=== PATIENT | female | born 1965 | race American Indian/Alaskan Native ===

== ENCOUNTER 2018-04-30 12:51 | Emergency (ER) | payer SELFPAY ==
[2018-04-30 13:06] VITALS: BP 171/105
--- NOTE | 2018-04-30 13:07 | Emergency Department Report ---
Blank Doc - Documentation Documentation: c/o left pain for months swelling since Friday. No trauma. Vaginal d/c for o jeremie a month. This initial assessment diagnostic orders/clinical plan/treatment (s) is/Are subject change based on patient's health status, clinical progression and re- assessment by fellow clinical providers in the ED. Further treatment and work-up at subsequent clinical providers discretion. Patient/guardians urged not to elope from their condition may be serious if not clinically assessed and managed. Initial order include:
[2018-04-30 13:55] LABS: Bilirubin,Urine NEG (Negative); Blood,Urine NEG (Negative); Color,Urine Yellow (Yellow); Mucus,Urine FEW /HPF; Protein,Urine <15 mg/dL mg/dL (Negative)
--- NOTE | 2018-04-30 16:47 | Emergency Department Report ---
ED General Adult HPI - General Chief complaint: Urogenital-Female Stated complaint: LFT LEG SWELLING/PAIN/DISCHARGE Time Seen by Provider: 04/30/18 13:03 Source: patient Mode of arrival: Ambulatory Limitations: No Limitations - History of Present Illness Initial comments: Patient is a 52-year-old female who presented with 2 problems. Problem #1 is that her left lower extremity i has developed swelling that is progressively worsening. Patient states that she thought that it may be related to her blood pressure she's been taking her blood pressure medicines. Patient's states it does vary in size throughout the day however it's not resolving like it was several months ago. Patient denies any injury. Patient also is complaining of vaginal discharge for the last 2 months. Patient states she is sexually active with one partner has not worried about STDs. She denies any dysuria or vaginal bleeding or urinary frequency. Patient states she tried taking amoxicillin think she may have had a urinary tract infection this did not resolve the issue. Severity scale (0 -10): 9 - Related Data Previous Rx's Medication Instructions Recorded Last Taken Type Fluconazole [Diflucan] 150 mg PO ONCE #1 tablet 04/30/18 Unknown Rx Furosemide [Lasix] 20 mg PO DAILY #5 tablet 04/30/18 Unknown Rx metroNIDAZOLE [Flagyl] 500 mg PO Q12HR #14 tab 04/30/18 Unknown Rx Allergies Allergy/AdvReac Type Severity Reaction Status Date / Time No Known Allergies Allergy Verified 04/30/18 12:57 ED Review of Systems ROS: Stated complaint: LFT LEG SWELLING/PAIN/DISCHARGE Other details as noted in HPI Comment: All other systems reviewed and negative ED Past Medical Hx - Past Medical History Hx Hypertension: Yes - Surgical History Additional Surgical History: HYSTO/ SLEEVE / TUBAL LIGATATION - Social History Smoking Status: Current Every Day Smoker Substance Use Type: Alcohol - Medications Home Medications: Home Medications Medication Instructions Recorded Confirmed Last Taken Type Fluconazole [Diflucan] 150 mg PO ONCE #1 tablet 04/30/18 Unknown Rx Furosemide [Lasix] 20 mg PO DAILY #5 tablet 04/30/18 Unknown Rx metroNIDAZOLE [Flagyl] 500 mg PO Q12HR #14 tab 04/30/18 Unknown Rx ED Physical Exam - General Limitations: No Limitations General appearance: alert, in no apparent distress - Head Head exam: Present: atraumatic, normocephalic - Eye Eye exam: Present: normal appearance - ENT ENT exam: Present: mucous membranes moist - Neck Neck exam: Present: normal inspection - Respiratory Respiratory exam: Present: normal lung sounds bilaterally. Absent: respiratory distress, wheezes, rales, rhonchi, stridor - Cardiovascular Cardiovascular Exam: Present: regular rate, normal rhythm. Absent: systolic murmur, diastolic murmur, rubs, gallop - GI/Abdominal GI/Abdominal exam: Present: soft, normal bowel sounds. Absent: distended, tenderness, guarding, rebound - External exam: Present: normal external exam Speculum exam: Present: vaginal discharge (white thick). Absent: vaginal bleeding, foreign body, tissue Bi-manual exam: Absent: cervical motion tendernes - Extremities Exam Extremities exam: Present: other (patient's left lower extremity does have 1+ edema up to the mid calf) - Back Exam Back exam: Present: normal inspection - Neurological Exam Neurological exam: Present: alert, oriented X3 - Psychiatric Psychiatric exam: Present: normal affect, normal mood - Skin Skin exam: Present: warm, dry, intact, normal color. Absent: rash ED Course Vital Signs 04/30/18 13:03 Temperature 98 F Pulse Rate 82 Respiratory 18 Rate Blood Pressure 171/105 O2 Sat by Pulse 99 Oximetry ED Medical Decision Making - Lab Data Labs 04/30/18 Unknown Urine Color Yellow Urine Turbidity Cloudy Urine pH 7.0 Ur Specific [place] 1.020 Urine Protein <15 mg/dl Urine Glucose (UA) Neg Urine Ketones Neg Urine Blood Neg Urine Nitrite Neg Urine Bilirubin Neg Urine Urobilinogen 4.0 Ur Leukocyte Esterase Neg Urine WBC (Auto) 4.0 Urine RBC (Auto) 4.0 Urine Mucus Few Wet prep shows bacterial vaginosis - Radiology Data No evidence of DVT is seen Critical care attestation.: If time is entered above; I have spent that time in minutes in the direct care of this critically ill patient, excluding procedure time. ED Disposition Clinical Impression: Dependent edema, Bacterial vaginosis Disposition: - TO HOME OR SELFCARE Is pt being admited?: No Does the pt Need Aspirin: No Condition: Stable Instructions: Bacterial Vaginosis (ED), Leg Edema (ED) Referrals: NERY CARPENTER MD [Primary Care Provider] - 3-5 Days Time of Disposition: 17:02
--- NOTE | 2018-04-30 18:13 | Vascular Lab Report ---
PROCEDURE: VL VENOUS DUPLEX LE LT TECHNIQUE: Ultrasound examination of the left lower extremity was performed to evaluate for DVT. HISTORY: left leg swelling PRIORS: None FINDINGS: The common femoral, greater saphenous, femoral, and popliteal veins are well visualized and easily co mpressible throughout with good color flow. Augmentation is normal at multiple levels from the popli teal to the common femoral vein levels. Examination of the calf veins demonstrate good visualization and compressibility of the peroneal and posterior tibial veins with good color flowthrough out. IMPRESSION: No evidence for DVT identified in the left lower extremity. This document is electronically signed by Ban Breaux MD., April 30 2018 03:19:53 PM ET
== END 2018-04-30 17:16 | disposition home or self-care (01) ==
LOC: ED 12:51
DX: N76.0 Acute vaginitis (principal); B96.89 Other specified bacterial agents as the cause of diseases classified elsewhere; R60.0 Localized edema; F17.200 Nicotine dependence, unspecified, uncomplicated; I10 Essential (primary) hypertension; Z98.51 Tubal ligation status; Z90.710 Acquired absence of both cervix and uterus
CPT/HCPCS: 81001; 87210; 87591